=== PATIENT | female | born 1935 | race Caucasian/White ===

== ENCOUNTER 2018-02-11 16:50 | Observation (INO) | payer MEDICARE ==
[~2018-02-11] VITALS: Ht 160 cm; Wt 80.9 kg
[2018-02-11] VITALS (16 sets, daily range): BP systolic 123–170; BP diastolic 62–73; PULSE 50–66; RESP 16–20; TEMP 97.2–97.6; O2SAT 96–99
[~2018-02-11 16:50] MED LIST: ASPI81TA81; DILT180C56 PO; DULC100C PO; FAMO20TA2 PO; GABA100C4 PO; HYDR12.57 PO; KLOR10TA PO; L-ME1CAP2; LORA1TAB12 PO; METATAB PO; METO100T PO; OCUVTAB PO; PLAV75TA29 PO; SIMV5TAB3 PO
[2018-02-11] MEDS ORDERED: FAMO20TA2 PO (17:20)
[2018-02-11] MEDS ORDERED: VERA120T3 PO (17:20)
--- NOTE | 2018-02-11 17:21 | PD ---
HPI Chief Complaint: Abnormal Results Time Seen by Provider: 17:16 Travel History International Travel<30 days: No Contact w/Intl Traveler<30days: No Traveled to known affect area: No History of Present Illness HPI 82-year-old female came to the emergency room with her daughter with history of feeling lightheaded and weak for past few weeks. For this her primary care asked her to keep a diary of her blood pressure and heart rate which she has been doing for past 1 week. Patient says that while doing that she has noticed that her heart rate has been in the 50s. Today at around 3 PM she started feeling very weak after she went shopping and took her blood pressure and heart rate and blood pressure was 88/45 and heart rate of 39 bpm. She called her primary care's office and was recommended by the nurse to come to the emergency room. Patient has not had any syncopal episode. She does have a central office associate Dr. Feliciano whom she saw 2 weeks ago and is scheduled for an echocardiogram for February. However given the abnormal readings on her blood pressure machine she came to the emergency room. Initial heart rate was in the 40s which eventually picked up and currently it is in the high to mid 50s. Blood pressures within acceptable range. Patient does not complain of any chest pain or shortness of breath. 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) Psychiatric: No Respiratory: No Thyroid Disease: No Influenza Vaccination: Yes ?: Not Menopausal: Yes Tubal Ligation: Yes Past Surgical History Abdominal Surgery: No AICD: No Body Medical Devices: LEFT HIP, RIGHT KNEE Cardiac Surgery: No Ear Surgery: No Endocrine Surgery: No Eye Surgery: No Genitourinary Surgery: No Gynecologic Surgery: Yes (TUBAL LIGATION) Joint Replacement: Yes (LEFT HIP, RIGHT KNEE, L KNEE ) Oral Surgery: Yes (TONSILECTOMY) Pacemaker: No Thoracic Surgery: No Tonsillectomy: Yes Other Surgery: Yes (CAROTIDS) Social History Alcohol Use: No Tobacco Use: No Substance Use: No Allergies-Medications (Allergen,Severity, Reaction): Coded Allergies: ampicillin (Unverified Allergy, Severe, 05/01/17) diatrizoate meglumine (Unverified Allergy, Severe, 05/01/17) gadobenic acid (Unverified Allergy, Severe, 05/01/17) gadodiamide (Unverified Allergy, Severe, 05/01/17) gadoteridol (Unverified Allergy, Severe, 05/01/17) iodixanol (Unverified Allergy, Severe, 05/01/17) iohexol (Unverified Allergy, Severe, 05/01/17) Comments List of her allergies reviewed from the nursing note. Reported Meds & Prescriptions Reported Meds & Active Scripts Active Reported Famotidine 20 Mg Tab 20 Mg PO HS Verapamil (Verapamil HCl) 120 Mg Tab 120 Mg PO BID Aspir-81 (Aspirin) 81 Mg Tabdr Dulcolax Stool Softener (Docusate Sodium) 100 Mg Cap 100 Mg PO BID Plavix (Clopidogrel Bisulfate) 75 Mg Tab 75 Mg PO DAILY Lorazepam 1 Mg Tab 1 Mg PO HS PRN Simvastatin 5 Mg Tab 5 Mg PO DAILY Gabapentin 100 Mg Cap 200 Mg PO BID Narrative Medication List of her home medications reviewed from the nursing note. Review of Systems Except as stated in HPI: all other systems reviewed are Neg Physical Exam Narrative GENERAL: Awake, alert, mild distress SKIN: Focused skin assessment warm/dry. HEAD: Atraumatic. Normocephalic. EYES: Pupils equal and round. No scleral icterus. No injection or drainage. ENT: No nasal bleeding or discharge. Mucous membranes pink and moist. NECK: Trachea midline. No JVD. CARDIOVASCULAR: Regular rate and rhythm. Bradycardia. No murmur appreciated. RESPIRATORY: No accessory muscle use. Clear to auscultation. Breath sounds equal bilaterally. GASTROINTESTINAL: Abdomen soft, non-tender, nondistended. Hepatic and splenic margins not palpable. MUSCULOSKELETAL: No obvious deformities. No clubbing. No cyanosis. No edema. NEUROLOGICAL: Awake and alert. No obvious cranial nerve deficits. Motor grossly within normal limits. Normal speech. PSYCHIATRIC: Appropriate mood and affect; insight and judgment normal. Data Data Last Documented VS Vital Signs Date Time Temp Pulse Resp B/P (MAP) Pulse Ox O2 Delivery O2 Flow Rate FiO2 02/11/18 19:01 56 16 97 Room Air 02/11/18 19:01 156/73 (100) 02/11/18 16:56 97.6 Orders Orders Electrocardiogram (02/11/18 17:27) Prothrombin Time / Inr (Pt) (02/11/18 17:27) Complete Blood Count With Diff (02/11/18 17:27) Basic Metabolic Panel (Bmp) (02/11/18 17:27) Troponin I (02/11/18 17:27) Urinalysis - C+S If Indicated (02/11/18 17:27) Ct Brain W/O Iv Contrast(Rout) (02/11/18 17:27) Chest, Single Ap (02/11/18 17:27) Ecg Monitoring (02/11/18 17:27) Iv Access Insert/Monitor (02/11/18 17:27) Oximetry (02/11/18 17:27) Sodium Chloride 0.9% Flush (Ns Flush) (02/11/18 17:30) Orthostatic Vital Signs (02/11/18 17:27) Place In Observation (02/11/18 ) Vital Signs (Adult) Q4H (02/11/18 19:05) Activity Oob With Assistance (02/11/18 19:05) Dry Cell Tester / Telemetry .CONTINUOUS (02/11/18 19:05) Diet Heart Healthy (02/12/18 Breakfast) Sodium Chloride 0.9% Flush (Ns Flush) (02/11/18 19:15) Sodium Chloride 0.9% Flush (Ns Flush) (02/11/18 21:00) Acetaminophen (Tylenol) (02/11/18 19:15) Resp Oxygen Jamarcus C Titrat 1-4 L (02/11/18 ) Scd Bilateral/Knee High KAILYN.BID (02/11/18 19:05) Naloxone Inj (Narcan Inj) (02/11/18 19:15) Magnesium Hydroxide Liq (Milk Of Magnesi (02/11/18 19:15) Sennosides (Senokot) (02/11/18 19:15) Bisacodyl Supp (Dulcolax Supp) (02/11/18 19:15) Lactulose Liq (Lactulose Liq) (02/11/18 19:15) Admit Order (Ed Use Only) (02/11/18 19:07) Labs Laboratory Tests Test 02/11/18 17:50 02/11/18 18:19 White Blood Count 8.2 TH/MM3 Red Blood Count 4.11 MIL/MM3 Hemoglobin 12.8 GM/DL Hematocrit 38.2 % Mean Corpuscular Volume 92.7 FL Mean Corpuscular Hemoglobin 31.2 PG Mean Corpuscular Hemoglobin Concent 33.6 % Red Cell Distribution Width 12.8 % Platelet Count 245 TH/MM3 Mean Platelet Volume 7.6 FL Neutrophils (%) (Auto) 57.1 % Lymphocytes (%) (Auto) 28.0 % Monocytes (%) (Auto) 11.1 % Eosinophils (%) (Auto) 3.0 % Basophils (%) (Auto) 0.8 % Neutrophils # (Auto) 4.7 TH/MM3 Lymphocytes # (Auto) 2.3 TH/MM3 Monocytes # (Auto) 0.9 TH/MM3 Eosinophils # (Auto) 0.2 TH/MM3 Basophils # (Auto) 0.1 TH/MM3 CBC Comment DIFF FINAL Differential Comment Prothrombin Time 10.4 SEC Prothromb Time International Ratio 1.0 RATIO Blood Urea Nitrogen 22 MG/DL Creatinine 1.00 MG/DL Random Glucose 99 MG/DL Calcium Level 8.9 MG/DL Sodium Level 140 MEQ/L Potassium Level 3.8 MEQ/L Chloride Level 105 MEQ/L Carbon Dioxide Level 27.7 MEQ/L Anion Gap 7 MEQ/L Estimat Glomerular Filtration Rate 53 ML/MIN Troponin I LESS THAN 0.02 NG/ML B-Type Natriuretic Peptide 208 PG/ML Urine Color YELLOW Urine Turbidity CLEAR Urine pH 5.5 Urine Specific [place] LESS/EQUAL 1.005 Urine Protein NEG mg/dL Urine Glucose (UA) NEG mg/dL Urine Ketones NEG mg/dL Urine Occult Blood NEG Urine Nitrite NEG Urine Bilirubin NEG Urine Urobilinogen 0.2 MG/DL Urine Leukocyte Esterase NEG Urine RBC 0-2 /hpf Urine WBC 0-2 /hpf Urine Squamous Epithelial Cells 6-8 /hpf Urine Bacteria NONE /hpf Microscopic Urinalysis Comment CULT NOT INDICATED MDM Medical Decision Making Medical Screen Exam Complete: Yes Emergency Medical Condition: Yes Medical Record Reviewed: Yes Interpretation(s) Twelve-lead EKG was reviewed by me. Normal sinus rhythm, left bundle branch block, left axis deviation, bradycardia, first-degree AV block. Heart rate of 51 bpm Differential Diagnosis Symptomatic bradycardia, electrolyte abnormality, ACS Narrative Course 6:25 PM patient told me that she has history of left bundle branch block. Patient is on verapamil as well as metoprolol both of which could lower the heart rate. Blood test results are back and within acceptable limits. 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 Patient has maintained her blood pressure and her heart rate has been between high 40s to high 50s. I put a call out for her central office associate whoever is covering to discuss the case with them. 6:53 PM I discussed the case with Dr. Burgos who is covering for Dr. Feliciano. He agreed that the bradycardia is probably linked to the medications that the patient is taking. He wanted the Lopressor to be stopped and verapamil cut down to half. However he wanted the patient to be admitted overnight so that she can be monitored and seen by Dr. Feliciano tomorrow morning. He said he would let Dr. Feliciano know about it. Awaiting for the hospitalist to call back. Procedures EKG Prior to Arrival: No Physician Communication Physician Communication Dr. Burgos Diagnosis Primary Impression: Symptomatic bradycardia Additional Impression: First degree AV block Admitting Information Admitting Physician Requests: Shania Marvin MD February 11, 2018 17:21
[2018-02-11] MEDS ORDERED: SODIUM CHLORIDE 0.9% FLUSH 10 ML FLUSH IVF PRN (17:30)
[2018-02-11 18:01] LABS: AUTOMATED NEUTROPHIL # 4.7 TH/MM3 (1.8-7.7); BASOPHIL # 0.1 TH/MM3 (0-0.2); BASOPHIL % 0.8 % (0.0-2.0); EOSINOPHIL # 0.2 TH/MM3 (0-0.4); HEMATOCRIT 38.2 % (35.0-46.0); HEMOGLOBIN 12.8 GM/DL (11.6-15.3); LYMPHOCYTE # 2.3 TH/MM3 (1.0-4.8); MEAN CELL VOLUME 92.7 FL (80.0-100.0); MEAN CORPUSCULAR HEMOGLOBIN 31.2 PG (27.0-34.0); MEAN CORPUSCULAR HGB CONC 33.6 % (32.0-36.0); MEAN PLATELET VOLUME 7.6 FL (7.0-11.0); MONO % 11.1 % (0.0-8.0); MONOCYTE # 0.9 TH/MM3 (0-0.9); NEUT % 57.1 % (16.0-70.0); PLATELET COUNT 245 TH/MM3 (150-450); RED BLOOD COUNT 4.11 MIL/MM3 (4.00-5.30); RED CELL DISTRIBUTION WIDTH 12.8 % (11.6-17.2); WHITE BLOOD COUNT 8.2 TH/MM3 (4.0-11.0)
[2018-02-11 18:08] LABS: CHLORIDE 105 MEQ/L (98-107); SODIUM (NA) 140 MEQ/L (136-145)
--- NOTE | 2018-02-11 18:08 | RADRPT ---
EXAM DATE: 02/11/2018 6:01 PM EDT AGE/SEX: 82 years / Female INDICATIONS: Low blood pressure and heart rate today CLINICAL DATA: This is the patient's initial encounter. Patient reports that signs and symptoms have been present for 2 days and indicates a pain score of 3/10. MEDICAL/SURGICAL HISTORY: Hypertension. Cerebrovascular disease. None. COMPARISON: [facility], CHEST SINGLE AP, 04/29/2012. . FINDINGS: A single AP view of the chest demonstrates the lungs to be symmetrically aerated without evidence of mass, infiltrate or effusion. Minimal basilar atelectasis or scarring. The cardiomediastinal contours are mildly prominent. Osseous structures are intact. CONCLUSION: Mild cardiomegaly. Minimal basilar atelectasis or scarring. Electronically signed by: Arian Daly MD 02/11/2018 6:07 PM EDT
[2018-02-11 18:10] LABS: BICARBONATE 27.7 MEQ/L (21.0-32.0); CALCIUM 8.9 MG/DL (8.5-10.1)
[2018-02-11 18:11] LABS: BLOOD UREA NITROGEN 22 MG/DL (7-18); GLUCOSE,RANDOM 99 MG/DL (74-106)
[2018-02-11 18:12] LABS: PROTHROMBIN TIME - PATIENT 10.4 SEC (9.8-11.6)
[2018-02-11 18:14] LABS: GLOMERULAR FILTRATION RATE 53 ML/MIN (>89)
--- NOTE | 2018-02-11 18:15 | RADRPT ---
EXAM DATE: 02/11/2018 6:11 PM EDT AGE/SEX: 82 years / Female INDICATIONS: General weakness today. CLINICAL DATA: This is the patient's initial encounter. Patient reports that signs and symptoms have been present for 1 day and indicates a pain score of 0/10. MEDICAL/SURGICAL HISTORY: Stroke. Hypertension. Tonsillectomy. Tubal ligation. carotid surgery RADIATION DOSE: 57.09 CTDI (mGy) COMPARISON: [facility], CT BRAIN W/O CONTRAST, 04/29/2012. . TECHNIQUE: CT of the head without contrast. Using automated exposure control and adjustment of the mA and/or kV according to patient size, radiation dose was kept as low as reasonably achievable to ob tain optimal diagnostic quality images. FINDINGS: Cerebrum: The ventricles are normal for age. Stable small lacunar infarct left basal ganglia. No amish dence of midline shift, mass lesion, hemorrhage or acute infarction. No extraaxial fluid collections are seen. Posterior Fossa: The cerebellum and brainstem are intact. The 4th ventricle is midline. The cerebe llopontine angle is unremarkable. Extracranial: The visualized portion of the orbits is intact. Skull: The calvaria is intact. No evidence of skull fracture. CONCLUSION: 1. No acute findings. Stable mild chronic white matter ischemic changes and small lacunar infarct le ft basal ganglia, compared with 2011. Electronically signed by: Arian Daly MD 02/11/2018 6:13 PM EDT
[2018-02-11 18:18] LABS: TROPONIN I LESS THAN 0.02 NG/ML (0.02-0.05)
[2018-02-11 18:27] LABS: BILIRUBIN, URINE NEG (NEG); BLOOD, URINE NEG (NEG); GLUCOSE,URINE NEG (NEG); KETONE, URINE NEG (NEG); NITRITE,URINE NEG (NEG); PH, URINE 5.5 (5.0-8.5); URINE COLOR YELLOW (YELLW/STRAW); URINE LEUKOCYTE ESTERASE NEG (NEG)
[2018-02-11 18:41] LABS: RBC, URINE 0-2 /hpf (0-3); WBC, URINE 0-2 /hpf (0-5)
[2018-02-11] MEDS ORDERED: SODIUM CHLORIDE 0.9% FLUSH 10 ML FLUSH IV FLUSH PRN (19:15)
[2018-02-11] MEDS ORDERED: MAGNESIUM HYDROXIDE SUSP 30 ML CUP PO PRN (19:15)
[2018-02-11] MEDS ORDERED: NALOXONE HCL 0.4 MG/ML AMP IV PUSH PRN (19:15)
[2018-02-11] MEDS ORDERED: LACTULOSE SYRUP 20 GM/30 ML CUP PO PRN (19:15)
[2018-02-11] MEDS ORDERED: SENNOSIDES 8.6 MG TAB PO PRN (19:15)
[2018-02-11] MEDS ORDERED: BISACODYL 10 MG SUPP RECTAL PRN (19:15)
[2018-02-11] MEDS ORDERED: PILL SPLITTER OTHER PRN (19:45)
[2018-02-11] MEDS: VERAPAMIL HCL 80 MG TAB PO SCH (21:00)
[2018-02-11] MEDS ORDERED: FAMOTIDINE 20 MG TAB PO SCH (21:00)
[2018-02-11] MEDS: SODIUM CHLORIDE 0.9% FLUSH 10 ML FLUSH IV FLUSH SCH (22:46)
[2018-02-11] MEDS ORDERED: LORazepam 0.5 MG TAB PO ONE (23:15)
[2018-02-12 00:23] VITALS: BP_SYST 170; BP_SYST 176; BP_SYST 179; BP_DIAS 74; BP_DIAS 75; BP_DIAS 76; PULSE 63; RESP 20; TEMP 96.1; O2SAT 96
[2018-02-12] MEDS: ACETAMINOPHEN 325 MG TAB PO PRN ×3 (01:02→10:31)
[2018-02-12 05:09] VITALS: BP 145/75; PULSE 66; RESP 20; TEMP 95.9; O2SAT 95
[2018-02-12 07:55] VITALS: BP_SYST 130; BP_SYST 134; BP_SYST 144; BP_DIAS 60; BP_DIAS 63; BP_DIAS 67; PULSE 64; PULSE 68; RESP 20; TEMP 97.2; O2SAT 95
[2018-02-12 08:00] VITALS: PULSE 64
[2018-02-12 08:26] VITALS: O2SAT 95
[2018-02-12] MEDS ORDERED: CLOPIDOGREL 75 MG TAB PO SCH (09:00)
[2018-02-12] MEDS ORDERED: PRAVASTATIN SOD 10 MG TAB PO SCH (09:00)
--- NOTE | 2018-02-12 09:04 | HHI.HP ---
[facility] Service [facility] Primary Care Physician Magda Herr MD Admission Diagnosis Symptomatic bradycardia Diagnoses: (1) Symptomatic bradycardia Chief Complaint: Lightheadedness and dizziness Reports of low heart rate and blood pressure Travel History International Travel<30 Days: No Contact w/Intl Traveler <30 Da: No Traveled to Known Affected Are: No History of Present Illness Written by Leisa Floyd, acting as scribe for Dr. Allison on 02/12/18 at 09:04. This is a pleasant 82-year-old female patient with a known medical history of hypertension, hyperlipidemia, history of CVA who presented to the ED with complaints of lightheadedness and weakness with reported low blood pressure and heart rate. Patient states for the past week she has been keeping a diary of her blood pressures per recommendation from her PCP and noticed after shopping today she came in with checked her blood pressure with a reading of 88/45 and a heart rate of 39 bpm. Patient does state that she was feeling very weak with associated lightheadedness and dizziness roughly all day yesterday. Patient also does complain of shortness of breath with walking and intermittent headaches. She does state that she has been having these symptoms on and off for the past few months. Patient has been following with her ceramics teacher, Dr. Feliciano, whom she saw 2 weeks ago with no further adjustments to her medications and scheduled an echocardiogram for her in February. She does state that she has been taking hydrochlorothiazide for intermittent lower extremity swelling, and has been adjusting her hydrochlorothiazide dose at home. Per her daily blood pressure logs she has noticed her blood pressure dropped when taking her prescribed dose. She does state that her blood pressure cuff is roughly 20 years old. It should be noted that patient is also on metoprolol and verapamil. Patient denies any recent illness including fever, chills, cough, chest pain, abdominal pain, nausea, vomiting, diarrhea or dysuria. Review of Systems Constitutional: COMPLAINS OF: Fatigue, Dizziness, DENIES: Diaphoretic episodes , Fever, Chills, Change in appetite Eyes: DENIES: Diplopia Ears, nose, mouth, throat: DENIES: Vertigo Respiratory: DENIES: Cough, Sputum production, Shortness of breath Cardiovascular: COMPLAINS OF: Dyspnea on Exertion, Lower Extremity Edema, DENIES: Chest pain, Palpitations Gastrointestinal: DENIES: Abdominal pain, Black stools, Bloody stools, Constipation, Diarrhea, Nausea, Vomiting Musculoskeletal: DENIES: Joint pain Hematologic/lymphatic: DENIES: Bruising Neurologic: DENIES: Abnormal gait Psychiatric: DENIES: Anxiety Except as stated in HPI: all other systems reviewed are Neg Past Family Social History Past Medical History Arthritis Anxiety Hyperlipidemia History of CVA Hypertension Past Surgical History Right carotid endarterectomy Left hip replacement Bilateral knee replacement Tonsillectomy Tubal ligation Reported Medications Active Reported Famotidine 20 Mg Tab 20 Mg PO HS Verapamil (Verapamil HCl) 120 Mg Tab 120 Mg PO BID Aspir-81 (Aspirin) 81 Mg Tabdr Dulcolax Stool Softener (Docusate Sodium) 100 Mg Cap 100 Mg PO BID Klor-Con 10 (Potassium Chloride) 10 Meq Tab 10 Meq PO DAILY Plavix (Clopidogrel Bisulfate) 75 Mg Tab 75 Mg PO DAILY Lorazepam 1 Mg Tab 1 Mg PO HS PRN Simvastatin 5 Mg Tab 5 Mg PO DAILY Gabapentin 100 Mg Cap 200 Mg PO BID Hydrochlorothiazide 12.5 Mg Cap 12.5 Mg PO BID Metoprolol Tartrate 100 Mg Tab 100 Mg PO BID Allergies: Coded Allergies: ampicillin (Unverified Allergy, Severe, 05/01/17) diatrizoate meglumine (Unverified Allergy, Severe, 05/01/17) gadobenic acid (Unverified Allergy, Severe, 05/01/17) gadodiamide (Unverified Allergy, Severe, 05/01/17) gadoteridol (Unverified Allergy, Severe, 05/01/17) iodixanol (Unverified Allergy, Severe, 05/01/17) iohexol (Unverified Allergy, Severe, 05/01/17) Active Ordered Medications Current Medications Medications (Trade) Dose Ordered Sig/Therese Route Start Time Stop Time Status Last Admin (NS Flush) 2 ml UNSCH PRN IV FLUSH 02/11/18 19:15 (NS Flush) 2 ml BID IV FLUSH 02/11/18 21:00 02/12/18 09:10 (Tylenol) 650 mg Q4H PRN PO 02/11/18 19:15 5/29/18 01:02 (Narcan Inj) 0.4 mg UNSCH PRN IV PUSH 02/11/18 19:15 (Milk Of Magnesia Liq) 30 ml Q12H PRN PO 02/11/18 19:15 (Senokot) 17.2 mg Q12H PRN PO 02/11/18 19:15 (Dulcolax Supp) 10 mg DAILY PRN RECTAL 02/11/18 19:15 (Lactulose Liq) 30 ml DAILY PRN PO 02/11/18 19:15 (Plavix) 75 mg DAILY PO 02/12/18 09:00 02/12/18 09:10 (Pepcid) 20 mg HS PO 02/11/18 21:00 02/11/18 22:46 (Pravachol) 10 mg DAILY PO 02/12/18 09:00 02/12/18 09:10 (Isoptin) 40 mg Q12HR PO 02/11/18 21:00 (Pill Splitter) 1 ea UNSCH PRN OTHER 02/11/18 19:45 Family History Father had history of cirrhosis. Mother had history of CHF. Social History Patient denies any history of tobacco, alcohol or illicit drug use. Physical Exam Vital Signs Vital Signs Date Time Temp Pulse Resp B/P (MAP) Pulse Ox O2 Delivery O2 Flow Rate FiO2 02/12/18 08:26 95 21 02/12/18 07:55 68 144/67 (92) 02/12/18 07:55 64 134/63 (86) 02/12/18 07:55 97.2 64 20 130/60 (83) 95 02/12/18 05:09 95.9 66 20 145/75 (98) 95 02/12/18 00:23 96.1 63 20 179/74 (109) 96 176/75 (108) 170/76 (107) 02/11/18 23:44 96 21 02/11/18 22:00 63 02/11/18 21:43 97.2 66 20 170/73 (105) 98 02/11/18 21:07 62 16 153/62 (92) 98 02/11/18 20:30 58 16 157/73 (101) 98 Room Air 02/11/18 19:59 66 16 150/72 (98) 97 Room Air 02/11/18 19:01 56 16 97 Room Air 02/11/18 19:01 56 16 156/73 (100) 97 Room Air 02/11/18 18:47 57 18 139/73 (95) 97 Room Air 02/11/18 18:28 59 18 146/66 (92) 60 18 154/73 (100) 61 18 123/65 (84) 02/11/18 18:00 50 18 136/71 (92) 98 Room Air 02/11/18 17:53 96 Room Air 02/11/18 17:40 52 18 133/63 (86) 98 Room Air 02/11/18 17:21 50 18 134/70 (91) 98 Room Air 02/11/18 17:06 52 99 Room Air 02/11/18 17:05 52 18 146/71 (96) 99 Room Air 02/11/18 16:56 97.6 54 16 149/70 (96) 97 Physical Exam GENERAL: Well-developed, well-nourished patient in [facility]. SKIN: Warm and dry. No rash. HEAD: Normocephalic. Atraumatic. EYES: Pupils equal and round. No scleral icterus. No injection or drainage. ENT: No nasal bleeding or discharge. Mucous membranes pink and moist. NECK: Supple. Trachea midline. CARDIOVASCULAR: Regular rate and rhythm. S1, S2 noted. No murmur appreciated. RESPIRATORY: No accessory muscle use. Clear to auscultation. Breath sounds equal bilaterally. GASTROINTESTINAL: Abdomen soft, non-tender, nondistended. Normoactive bowel sounds x4. MUSCULOSKELETAL: No obvious deformities. Extremities without clubbing, cyanosis. Trace edema bilateral feet. NEUROLOGICAL: Awake and alert. No obvious cranial nerve deficits. Motor grossly within normal limits. 5/5 muscle strength in bilateral upper and lower extremities. Normal speech. PSYCHIATRIC: Appropriate mood and affect; insight and judgment normal. Laboratory Laboratory Tests Test 02/11/18 17:50 02/11/18 18:19 White Blood Count 8.2 Red Blood Count 4.11 Hemoglobin 12.8 Hematocrit 38.2 Mean Corpuscular Volume 92.7 Mean Corpuscular Hemoglobin 31.2 Mean Corpuscular Hemoglobin Concent 33.6 Red Cell Distribution Width 12.8 Platelet Count 245 Mean Platelet Volume 7.6 Neutrophils (%) (Auto) 57.1 Lymphocytes (%) (Auto) 28.0 Monocytes (%) (Auto) 11.1 Eosinophils (%) (Auto) 3.0 Basophils (%) (Auto) 0.8 Neutrophils # (Auto) 4.7 Lymphocytes # (Auto) 2.3 Monocytes # (Auto) 0.9 Eosinophils # (Auto) 0.2 Basophils # (Auto) 0.1 CBC Comment DIFF FINAL Differential Comment Prothrombin Time 10.4 Prothromb Time International Ratio 1.0 Blood Urea Nitrogen 22 Creatinine 1.00 Random Glucose 99 Calcium Level 8.9 Sodium Level 140 Potassium Level 3.8 Chloride Level 105 Carbon Dioxide Level 27.7 Anion Gap 7 Estimat Glomerular Filtration Rate 53 Troponin I LESS THAN 0.02 Urine Color YELLOW Urine Turbidity CLEAR Urine pH 5.5 Urine Specific [place] LESS/EQUAL 1.005 Urine Protein NEG Urine Glucose (UA) NEG Urine Ketones NEG Urine Occult Blood NEG Urine Nitrite NEG Urine Bilirubin NEG Urine Urobilinogen 0.2 Urine Leukocyte Esterase NEG Urine RBC 0-2 Urine WBC 0-2 Urine Squamous Epithelial Cells 6-8 Urine Bacteria NONE Microscopic Urinalysis Comment CULT NOT INDICATED Result Diagram: 02/11/18174902/11/181749 Imaging Last Impressions Head CT 02/11/181726 Signed Impressions: CONCLUSION: 1. No acute findings. Stable mild chronic white matter ischemic changes and sm all lacunar infarct left basal ganglia, compared with 2011. Chest X-Ray 02/11/181726 Signed Impressions: CONCLUSION: Mild cardiomegaly. Minimal basilar atelectasis or scarring. Septic Shock Reassessment Septic shock perfusion: reassessment completed Caprini VTE Risk Assessment Caprini VTE Risk Assessment: Mod/High Risk (score >= 2) Caprini Risk Assessment Model Point Value = 1 Point Value = 2 Point Value = 3 Point Value = 5 Age 41-60 Minor surgery BMI > 25 kg/m2 Swollen legs Varicose veins or History of unexplained or recurrent spontaneous Oral contraceptives or hormone replacement Sepsis (< 1 month) Serious lung disease, including pneumonia (< 1 month) Abnormal pulmonary function Acute myocardial infarction Congestive heart failure (< 1 month) History of inflammatory bowel disease Medical patient at bed rest Age 61-74 Arthroscopic surgery Major open surgery (> 45 min) Laparoscopic surgery (> 45 min) Malignancy Confined to bed (> 72 hours) Immobilizing plaster cast Central venous access Age >= 75 History of VTE Family history of VTE Factor V Leiden Prothrombin [id number] Lupus anticoagulant Anticardiolipin antibodies Elevated serum homocysteine Heparin-induced thrombocytopenia Other congenital or acquired thrombophilia Stroke (< 1 month) Elective arthroplasty Hip, pelvis, or leg fracture Acute spinal cord injury (< 1 month) Prophylaxis Regimen Total Risk Factor Score Risk Level Prophylaxis Regimen 0-1 Low Early ambulation 2 Moderate Order ONE of the following: *Sequential Compression Device (SCD) *Heparin 5000 units SQ BID 3-4 Higher Order ONE of the following medications: *Heparin 5000 units SQ TID *Enoxaparin/Lovenox 40 mg SQ daily (WT < 150 kg, CrCl > 30 mL/min) *Enoxaparin/Lovenox 30 mg SQ daily (WT < 150 kg, CrCl > 10-29 mL/min) *Enoxaparin/Lovenox 30 mg SQ BID (WT < 150 kg, CrCl > 30 mL/min) AND/OR *Sequential Compression Device (SCD) 5 or more Highest Order ONE of the following medications: *Heparin 5000 units SQ TID (Preferred with Epidurals) *Enoxaparin/Lovenox 40 mg SQ daily (WT < 150 kg, CrCl > 30 mL/min) *Enoxaparin/Lovenox 30 mg SQ daily (WT < 150 kg, CrCl > 10-29 mL/min) *Enoxaparin/Lovenox 30 mg SQ BID (WT < 150 kg, CrCl > 30 mL/min) AND *Sequential Compression Device (SCD) Assessment and Plan Problem List: (1) Symptomatic bradycardia ICD Code: R00.1 - Bradycardia, unspecified Status: Acute Assessment and Plan This is a pleasant 82-year-old female patient with a known medical history of hypertension, hyperlipidemia, history of CVA who presented to the ED with complaints of lightheadedness and weakness with reported low blood pressure and heart rate. Symptomatic bradycardia with complaints of lightheadedness and dizziness - Symptoms have resolved since presentation. Heart rate has been in the 50s and 60s. Dizziness and lightheadedness resolved. - Consult placed to patient's ceramics teacher, Dr. Feliciano, appreciate input recommendations. - An echocardiogram has been ordered, pending. Await results. Will add BNP to labs. Follow. - Continue cardiac telemetry, monitor for any arrhythmias. Reviewed from overnight no arrhythmias noted. - Orthostatic blood pressures ordered, not significant. - Head CT reviewed showing no acute findings. Does show old infarct chronic white matter ischemic changes. - CBC and BMP reviewed, essentially remarkable. UA negative. - Chest x-ray reviewed showing mild cardiomegaly. - Will continue verapamil at a lower dose, 40 mg PO BID. HCTZ and Lopressor on hold for now. Monitor BP trends. Hyperlipidemia, chronic: Will continue home statin. History of CVA - Head CT as above. - Continue home Aspirin and Plavix. - Supportive care. DVT prophylaxis: SCDs. Disposition Discharge patient to home Condition on discharge: Improved Regular Diet as tolerated Ad Erica activity Rx written: None Follow-up with primary care physician in 1 week Patient will follow with her ceramics teacher, with whom the case was discussed, next . He recommended that 2D echo be cancelled This note was transcribed by layton Floyd. I, Dr. Raheem Allison personally performed the history, physical exam, and medical decision making; and confirmed the accuracy of the information in the transcribed note. Authenticated by Dr. Raheem Allison on 02/12/18 at 09:04. Code Status Full code Discussed Condition With Patient, daughter Leisa Floyd MICHEL February 12, 2018 09:04 Raheem Allison MD February 12, 2018 09:04
[2018-02-12] MEDS: VERAPAMIL HCL 80 MG TAB PO SCH (09:09)
[2018-02-12] MEDS: SODIUM CHLORIDE 0.9% FLUSH 10 ML FLUSH IV FLUSH SCH (09:10)
[2018-02-12] MEDS: ARTIFICIAL TEARS OPTH OINT 3.5 APPLIC/3.5 GM TUBO EACH EYE SCH ×2 (10:26→10:28)
[2018-02-12 11:28] VITALS: BP 140/64; PULSE 68; RESP 20; TEMP 97.2; O2SAT 96
--- NOTE | 2018-02-12 12:25 | HHI.DCPOC ---
Discharge Care Plan Diagnosis: (1) Symptomatic bradycardia Goals to Promote Your Health * To prevent worsening of your condition and complications * To maintain your health at the optimal level Directions to Meet Your Goals Please stop taking your Hydrochlorothiazide and Potassium supplementation until seen by Dr. Feliciano on at 10:30 and get his recommendations for continuing these. Can continue taking your Verapamil. Please obtain a new blood pressure cuff and continue taking daily readings and log. If your heart rate and blood pressure continue to trend up while only on the Verapamil, you can again introduce your Metoprolol and see your billet heater on . Hold Metoprolol if your heart rate if less than 60 or Blood pressure reading is less than 110/60. Follow your dietary instruction Follow activity as directed Keep your appointments as scheduled Take your immunizations and boosters as scheduled If your symptoms worsen call your PCP, if no PCP go to Urgent Care Center or Emergency Room Smoking is Dangerous to Your Health. Avoid second hand smoke Call the 24-hour hour crisis hotline for domestic abuse at Discharge patient to home Condition on discharge: Improved Heart healthy diet as tolerated Ad Erica activity. Rx written: Please see notes. Follow-up with primary care physician as well as billet heater on at 10: 30. Leisa Floyd February 12, 2018 12:25
--- NOTE | 2018-02-12 14:06 | EKG ---
Date Performed: 02/11/2018 Time Performed: 17:13:43 PTAGE: 82 years EKG: SINUS BRADYCARDIA WITH FIRST DEGREE AV BLOCK MARKED LEFT AXIS DEVIATION LEFT BUNDLE BRANCH BLOCK ABNORMAL ECG PREVIOUS TRACING : 09/13/2016 07.22 Since the previous tracing, no significant change noted DOCTOR: Gonzalo Lombardi Interpretating Date/Time 02/12/2018 14:02:22
[2018-02-13] MEDS ORDERED: ASPIRIN 81 MG CHEW TAB CHEW SCH (09:00)
== END 2018-02-12 13:11 | disposition home or self-care (01) ==
LOC: PHED 16:50 → PHEDA 19:08 → PH3B 21:18
PROVIDERS: ADMIT Hospitalist; ATTEND Hospitalist
DX: R00.1 Bradycardia, unspecified (principal); I11.9 Hypertensive heart disease without heart failure; E78.5 Hyperlipidemia, unspecified; I44.0 Atrioventricular block, first degree; I44.7 Left bundle-branch block, unspecified; R06.02 Shortness of breath; R51 Headache; F41.9 Anxiety disorder, unspecified; M19.90 Unspecified osteoarthritis, unspecified site; Z79.899 Other long term (current) drug therapy; Z79.82 Long term (current) use of aspirin; Z79.02 Long term (current) use of antithrombotics/antiplatelets; Z86.73 Personal history of transient ischemic attack (TIA), and cerebral infarction without residual deficits; Z96.642 Presence of left artificial hip joint; Z96.653 Presence of artificial knee joint, bilateral
CPT/HCPCS: 70450; 71045; 80048; 81001; 83880; 84484; 85025; 85610; 93005; 99285; G0378